=== PATIENT | female | born 1955 | race Caucasian/White ===

== ENCOUNTER 2020-08-05 11:30 | Day surgery (SDC) | payer OTHER ==
[2020-07-31 13:36] LABS: BASOPHILS % (AUTO) 0.7 % (0.0-5.0); EOSINOPHILS % (AUTO) 3.5 % (0.0-8.0); HEMATOCRIT 41.7 % (36-48); MEAN CORPUSCULAR HEMOGLOBIN 26.4 pg (27.0-33.0); MEAN CORPUSCULAR HGB CONC 32.6 g/dL (32.0-36.0); MEAN CORPUSCULAR VOLUME 80.8 fL (79-99); MONOCYTES % (AUTO) 9.3 % (3.0-13.0); NEUTROPHILS % (AUTO) 48.2 % (40.0-77.0); PLATELET COUNT (AUTO) 226 K/uL (130-400); RED BLOOD CELL COUNT(AUTO) 5.16 MIL/uL (4.00-5.50); RED CELL DISTRIBUTION WIDTH 15.8 % (11.0-15.5)
[2020-08-04 09:15] VITALS: BP 113/74
[2020-08-05] VITALS (17 sets, daily range): BP systolic 83–110; BP diastolic 48–78
[~2020-08-05] VITALS: Ht 172.7 cm; Wt 68.6 kg
[~2020-08-05 11:30] MED LIST: LACTATED RINGERS 1000ML 1,000 ML IV SCH; PROGESTERONE PO
[2020-08-05] MEDS ORDERED: DEXAMETHASONE SOD PHOSPHATE 10MG/ML 1ML VIAL ONE (13:07)
[2020-08-05] MEDS ORDERED: SUCCINYLCHOLINE 200MG/10ML SYR ONE ×2 (13:07→13:08)
[2020-08-05] MEDS ORDERED: LIDOCAINE PF 2% 5ML ABBOJECT ONE (13:07)
[2020-08-05] MEDS ORDERED: MIDAZOLAM HCL 1 MG/ML 2ML VIAL ONE (13:07)
[2020-08-05] MEDS ORDERED: ONDANSETRON HCL 4 MG/2 ML VIAL ONE (13:07)
[2020-08-05] MEDS ORDERED: PROPOFOL 10 MG/ML 20ML VIAL IV ONE (13:07)
[2020-08-05] MEDS ORDERED: FENTANYL CITRATE PF 50 MCG/1 ML 2ML VIAL ONE (13:08)
--- NOTE | 2020-08-05 14:50 | NUR ---
PATIENT ARRIVED TO DAY PATIENT VIA STRETCHER BY CHRIS LEUNG. PATIENT [id number], RESPIRATIONS UNLABORED, VITAL SIGNS STABLE, DENIES ANY PAIN AT THIS TIME. MARIELY PAD WITH SMALL AMOUNT OF BLOOD NOTED.
--- NOTE | 2020-08-05 15:15 | NUR ---
DISCHARGE INSTRUCTIONS PROVIDED VIA TELEPHONE TO LEATHA ARIAS (SPOUSE). FOLLOW UP APPOINTMENT PROVIDED AND AFTER CARE INSTRUCTIONS PROVIDED AND PRESCRIPTION PROVIDED WELL. ALL QUESTIONS/CONCERNS ADDRESSED.
--- NOTE | 2020-08-05 15:35 | NUR ---
PATIENT DISCHARGED FROM FACILITY VIA WHEELCHAIR BY NURSE AND ASSISTED INTO PRIVATE VEHICLE DRIVEN BY SPOUSE
== END 2020-08-05 15:35 | disposition home or self-care (01) ==
LOC: DAH 11:30
PROVIDERS: ATTEND Specialist
DX: N95.0 Postmenopausal bleeding (principal); I25.10 Atherosclerotic heart disease of native coronary artery without angina pectoris; I49.5 Sick sinus syndrome; Z20.828 Contact with and (suspected) exposure to other viral communicable diseases
CPT/HCPCS: 36415; 58120; 85025; A4215; A4221; A4222; A4223; A4351; A4510; A4600; A4663; C9803; J0330 ×2; J1100; J2001; J2250; J2405; J2704; J3010; J7120; U0003